=== PATIENT | female | born 1970 | race Caucasian/White ===

== ENCOUNTER → 2020-07-23 | Outpatient (CLI) | payer OTHER ==
--- NOTE | 2020-08-06 12:14 | RAD ---
DATE: 07/23/2020 EXAM: DIGITAL SCREEN BILAT W/CAD HISTORY: Screening COMPARISON: None. Baseline exam This study was interpreted with the benefit of Computerized Aided Detection (CAD). BREAST DENSITY: There are scattered areas of fibroglandular density. FINDINGS: No suspicious mass, suspicious calcifications, or architectural distortion in either breast. IMPRESSION: No evidence of malignancy. BI-RADS CATEGORY: 1 NEGATIVE RECOMMENDED FOLLOW-UP: Recommend annual screening mammogram in 12 months. PQRS compliance statement: Patient information was entered into a reminder system with a target due date July 2021 for the next mammogram. Mammography is a sensitive method for finding small breast cancers, but it does not detect them all and is not a substitute for careful clinical examination. A negative mammogram does not negate a clinically suspicious finding and should not result in delay in biopsying a clinically suspicious abnormality. "Our facility is accredited by the [employer] Mammography Program." [facility]
== END ==
LOC: EEVIPCON 07:56 → MAMMO 07:56
PROVIDERS: ATTEND Preventive Medicine Occupational Medicine
DX: Z12.31 Encounter for screening mammogram for malignant neoplasm of breast (principal)
CPT/HCPCS: 77067